=== PATIENT | male | born 1990 | race Caucasian/White ===

== ENCOUNTER 2022-01-08 16:04 | Outpatient (CLI) | payer OTHER, BC, SELFPAY ==
--- NOTE | 2022-01-08 16:35 | MRI_ITS ---
EXAM: MR RIGHT UPPER EXTREMITY WITHOUT INTRAVENOUS CONTRAST, WRIST CLINICAL INDICATION: RIGHT wrist pain LIFTING SOMETHING AT WORK 12/17/21 AND FELT WRIST POP. PAIN IS ALONG ULNAR SIDE OF WRIST AND ANTERIOR MID WRIST SINCE INJURY. THROBBING PAIN WHEN BENDS WRIST. TECHNIQUE: Multiplanar and multisequence MR images of the right wrist without intravenous contrast. This report was created using 140Fire report generation technology. COMPARISON: None. FINDINGS: LIGAMENTS: SCAPHOLUNATE: Unremarkable. Intact. LUNOTRIQUETRAL: Unremarkable. Intact. TENDONS: FLEXOR COMPARTMENTS: Unremarkable. Intact. No tenosynovitis. EXTENSOR COMPARTMENTS: Unremarkable. Intact. No tenosynovitis. NERVES: MEDIAN: Unremarkable. Median nerve is normal in size and signal intensity. ULNAR: Unremarkable. Ulnar nerve is normal in size and signal intensity. MUSCLES: Unremarkable. FLUID: Unremarkable. No joint effusion. CARTILAGE: Unremarkable. The articular cartilage is preserved. TRIANGULAR FIBROCARTILAGE COMPLEX: Unremarkable. Intact without communicating defect. BONES/JOINTS: In the volar aspect of the wrist, there is a multicystic lesion extending from the distal radius having the appearance of a ganglion. There is a narrow neck that extends towards the joint. The ganglion measures 17 x 24mm. There is a bone bruise of the distal ulna and triquetrum. No fracture. No abnormal bone marrow signal. No joint effusion or synovitis. OTHER SOFT TISSUES: Unremarkable. No ganglion. MRI/Upper Ext Joint Only(Routine) IMPRESSION: 1. In the volar aspect of the wrist, there is a multicystic lesion extending from the distal radius having the appearance of a ganglion. There is a narrow neck that extends towards the joint. The ganglion measures 17 x 24mm. 2. There is a bone bruise of the distal ulna and triquetrum. Electronically Signed: Juan Luis Khanna MD at 20:49 EST ,
== END 2022-01-08 23:59 | disposition home or self-care (01) ==
PROVIDERS: Visit Provider Emergency Medicine
DX: S63.501A Unspecified sprain of right wrist, initial encounter (principal)
CPT/HCPCS: 73221

== ENCOUNTER 2025-08-25 09:10 | Emergency (ER) | payer BC, SELFPAY ==
[2025-08-25 09:15] VITALS: BP 152/95; PULSE 135; RESP 16; TEMP 36.6; O2SAT 99; BMI 28.5
--- NOTE | 2025-08-25 09:26 | EKG12_ITS ---
Test Reason : SEIZURE Blood Pressure : */* mmHG Vent. Rate : 115 BPM Atrial Rate : 115 BPM P-R Int : 162 ms QRS Dur : 112 ms QT Int : 352 ms P-R-T Axes : 65 56 48 degrees QTcB Int : 486 ms Sinus tachycardia QTcB >= 480 msec Abnormal ECG Confirmed by ACE WARD ([id number]), scientific editor KONSTANTIN NOEL ([id number]) on 08/29/2025 6:35:27 AM Referred By: Confirmed By: ACE WARD
[2025-08-25 09:44] LABS: Hematocrit 47.4 % (40-54); Hemoglobin 15.9 g/dL (13.0-16.5); Immature Granulocytes Count 0.160 X10^3/uL (0.0-0.0); Mean Corp Hgb Conc 33.5 g/dL (32-36); Mean Corpuscular Volume 90.8 fL (80-94); Mean Platelet Vol. 10.9 fl (6.2-12.0); NRBC Flagged by Analyzer 0 % (0-5); Platelet Count 363 K/mm3 (150-450); RBC Distribution Width CV 12.6 % (11.6-14.6); RBC Distribution Width SD 41.8 fl (35.1-43.9); Red Blood Count 5.22 M/mm3 (4.6-6.2); White Blood Count 11.6 K/mm3 (4.4-11.0)
--- NOTE | 2025-08-25 09:58 | EX.ED.DYSGE1 ---
HPI History of Present Illness Chief Complaint: Seizure Informant: patient and EMS Narrative Narrative: Patient is a 35-year-old male with history of anxiety as well as bipolar disorder presenting for an episode of witnessed seizure-like activity. 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 He was in a machine area when the next he knows he woke up on the ground 6 people around him. Per report he went down and had witnessed seizure-like activity and hit his back on one of the machines. EMS reported that he was slightly postictal on scene but he does not recall being confused. He does not recall feeling anything before he woke up on the ground. He states he was previously in his normal state of health. Denies any new caffeine intake, medication changes, supplements. States he very rarely drinks alcohol. Denies any history of any seizure-like activity or syncope. Denies any chest pain. Is complaining of some mild pain of his right thoracic back where he thinks he hit something. Is not on any blood thinners. States he currently feels anxious and mildly shaky. Denies any pain in his tongue/laceration, bleeding from his mouth or urinary incontinence. No other complaints or concerns reported at this time. Per EMS report his seizure activity lasted about 5 minutes however he came to in the middle. Blood sugar was 136 per EMS. Prior similar symptoms: No Recent Illness/Hospitalization: No [facility] Medical History ADHD Anxiety Home Medications ?Medication ?Instructions ?Recorded ?Last Taken ?Type fluoxetine 10 mg tablet 10 mg PO DAILY 08/25/25 Unknown History hydrocodone-acetaminophen 5-325mg 1 tab PO Q8H PRN pain 3 days #10 08/25/25 Unknown Rx 5mg-325mg tabs Allergy/AdvReac Type Severity Reaction Status Date / Time No Known Allergies Allergy Verified 08/25/25 09:20 Social History Smoking Status: Current every day smoker tobacco type: smokeless tobacco ROS ROS ED Constitutional Constitutional ED: Denies chills or fever(s) Eyes Eyes: Denies change in vision Cardiovascular Cardiovascular: Denies chest pain Respiratory/Chest Respiratory/Chest: Denies cough or dyspnea Gastrointestinal Gastrointestinal: Denies abdominal pain, nausea or vomiting Musculoskeletal Musculoskeletal: Reports back pain Integumentary Denies Abrasions or rash Neurologic Neurologic: Reports other Details: Reported seizure activity prior to arrival. ; Denies headache(s), paresthesias or weakness Psychiatric Psychiatric: Reports anxiety; Denies depression Hematologic/Lymphatic Hematologic/Lymphatic: Denies easy bleeding or easy bruising EXAM Physical Exam Const Vital Signs: 08/25/25 09:15 08/25/25 12:00 08/25/25 14:13 Temperature 98 F Temperature Source Oral Pulse Rate 135 H 90 90 Respiratory Rate 16 15 Blood Pressure 152/95 H 148/97 H 135/89 H Blood Pressure Mean 114 114 104 Pulse Ox 99 97 98 Oxygen Delivery Method Room Air Room Air Room Air 08/25/25 14:28 Temperature 97 F L Temperature Source Pulse Rate 90 Respiratory Rate 15 Blood Pressure 135/89 H Blood Pressure Mean 104 Pulse Ox 98 Oxygen Delivery Method Positive well nourished and well developed General Appearance ED: well developed and NAD HEENT Reports TM's clear and moist mucous membranes HEENT Narrative: No tongue lesions appreciated. No signs of facial trauma. No signs of basilar skull fracture. Tympanic Membrane ED: Yes TM's clear Neck supple and no JVD General: Negative for tenderness Chest Wall inspection of chest normal and palpation of chest normal Resp normal respiratory effort and clear to auscultation bilaterally Cardio regular rhythm and no murmurs Rate: tachycardic GI normal to inspection, nondistended, normoactive bowel sounds and non-tender Back/Spine Back/Spine Narrative: Mild tenderness palpation of the right thoracic back just lateral to the inferior scapula. No overlying contusion or skin changes. Cervical Spine: cervical spine tenderness Thoracic Spine / Upper Back: Negative for thoracic spinal tenderness Lumbar Spine / Lower Back: Negative for lumbar spinal tenderness Extremity normal to inspection General Extremety ED: Negative for edema or tenderness General Extremity: Negative for edema Neuro oriented x3 Psych mental status grossly normal Mood & Affect: anxious Skin no rashes or lesions noted and no wounds MDM MDM MDM Narrative Medical decision making narrative: Patient evaluated for concern of seizure activity which is new onset. Upon arrival patient is mildly postictal but conversing appropriately. No tongue laceration. No signs of any urinary incontinence. Differential includes not limited to new onset seizure activity, electrolyte derangement, intracranial hemorrhage, space-occupying lesion, substance abuse and alcohol detox. Given that he does not report any alcohol use low alcohol detox. He denies any substance abuse and has not had any new medications or supplements. While in the ER patient clinically improved. Heart rate improved as well as blood pressure. He admits that he does not remember my initial interaction with him but I suspect is because he was postictal. CT of the brain does not show any acute process. Chest x-ray is obtained as he is complaining of pain in his right thoracic back likely from when he fell. There is no associated pneumothorax or obvious rib fracture. He does have increased pain there is given a Lidoderm patch, Toradol and Michael. I did discuss obtaining further imaging for evaluation of this however he is worried about the cost and would like to be treated clinically as if he does have a small rib fracture versus obtaining definitive imaging. I think this is reasonable especially as I have a low suspicion for any acute pneumothorax, hemothorax more severe complication. Workup largely normal. He has a mild leukocytosis of 11.6 however suspect this is reactive. Hemoglobin and platelets are normal. BMP is consistent with seizure activity with an elevated anion gap, bicarb of 15.2 however he otherwise has normal electrolytes. Glucose mildly elevated 136 which is nonspecific as this is not a fasting glucose. Lactate is elevated at 3.3. He is given IV fluids in the emergency room. Liver panel is normal. Urine tox is negative. EKG initially shows sinus tachycardia with no other arrhythmia or conduction delays concerning for cardiogenic cause of his seizure activity. CT of the brain does not show any acute process. Chest x-ray reviewed by myself as radiology does not show any acute process. Case is discussed with neurology on-call at [facility], Dr. Priest. He does not recommend any seizure medications and does not think his current medications (fluoxetine and olanzapine) would precipitate a seizure. He is agreeable with outpatient follow-up, seizure precautions no driving, outpatient EEG and follow-up with outpatient neurology. I did page his PCP to try to arrange for close outpatient follow-up. Patient be given outpatient referral for neurolgy. Was given Toradol, Michael and Lidoderm patch for his pain. Will be discharged home with return precautions. Patient verbalized agreement understand with this plan. [facility] was able to contact his PCP office and get him an appointment with his PCP this coming Friday. Patient is informed of this. Patient is given incentive spirometer for presumed rib contusion versus fracture as well as emergency room. Lab Data Attestation: I reviewed the patient's lab results. Labs: Laboratory Results - last 24 hr 08/25/25 08/25/25 08/25/25 08:55 09:45 12:52 WBC 11.6 H RBC 5.22 Hgb 15.9 Hct 47.4 MCV 90.8 MCH 30.5 MCHC 33.5 RDW Std Deviation 41.8 RDW Coeff of Alex 12.6 Plt Count 363 MPV 10.9 Immature Gran % (Auto) 1.400 H Neut % (Auto) 43.0 L Lymph % (Auto) 39.9 Centre % (Auto) 10.6 H Eos % (Auto) 4.1 Baso % (Auto) 1.0 Absolute Neuts (auto) 5.0 Absolute Lymphs (auto) 4.61 H Nucleated RBC % 0 Sodium 142 Potassium 3.2 L Chloride 100 Carbon Dioxide 15.2 L Anion Gap 27 H BUN 14 Creatinine 0.97 Estim Creat Clear Calc 109.30 Est GFR (MDRD) Non-Af 105 BUN/Creatinine Ratio 14.5 Glucose 136 H Lactic Acid 3.3 H* Calcium 9.5 Magnesium 2.1 Total Bilirubin 0.28 AST 32 ALT 42 Alkaline Phosphatase 81 Total Protein 7.6 Albumin 4.7 Globulin 2.8 Albumin/Globulin Ratio 1.7 Urine Opiates Screen NEGATIVE U Buprenorphine Qual NEGATIVE Ur Oxycodone Screen NEGATIVE Urine Methadone Screen NEGATIVE Urine Fentanyl Screen NEGATIVE Ur Barbiturates Screen NEGATIVE Ur Phencyclidine Scrn NEGATIVE Ur Amphetamines Screen NEGATIVE U Benzodiazepines Scrn NEGATIVE Urine Cocaine Screen NEGATIVE U Cannabinoids Screen NEGATIVE 08/25/25 14:00 WBC RBC Hgb Hct MCV MCH MCHC RDW Std Deviation RDW Coeff of Alex Plt Count MPV Immature Gran % (Auto) Neut % (Auto) Lymph % (Auto) Centre % (Auto) Eos % (Auto) Baso % (Auto) Absolute Neuts (auto) Absolute Lymphs (auto) Nucleated RBC % Sodium Potassium Chloride Carbon Dioxide Anion Gap BUN Creatinine Estim Creat Clear Calc Est GFR (MDRD) Non-Af BUN/Creatinine Ratio Glucose Lactic Acid 1.2 Calcium Magnesium Total Bilirubin AST ALT Alkaline Phosphatase Total Protein Albumin Globulin Albumin/Globulin Ratio Urine Opiates Screen U Buprenorphine Qual Ur Oxycodone Screen Urine Methadone Screen Urine Fentanyl Screen Ur Barbiturates Screen Ur Phencyclidine Scrn Ur Amphetamines Screen U Benzodiazepines Scrn Urine Cocaine Screen U Cannabinoids Screen Radiography Diagnostic Testing: Clinical Impression(s) from Imaging Studies Chest X-Ray 08/25/25 10:00 IMPRESSION: Lungs appear clear throughout. No pleural effusion or pneumothorax is noted. The cardiomediastinal silhouette is within the normal range. No acute osseous process is seen. Reading Location: [address] Brain [address] 08/25/25 10:04 IMPRESSION: NORMAL NONCONTRAST HEAD CT. Reading Location: [facility] Rhythm Strip Rhythm Strip: Sinus Tach Rate: 115 Ectopy: None EKG Initial EKG: Attestation: I personally reviewed and interpreted this EKG as follows: Interpretation: Sinus Tachycardia Comments: Sinus tachycardia rate 114 bpm Normal axis Normal intervals Normal ST segments Management Discussion w/another healthcare provider: [employer] (Neurologist) Discharge Plan Triage Chief Complaint: Seizure ED Provider: Chasidy Ace Dx/Rx/DC Orders Clinical Impression: Seizure-like activity, Contusion of rib on right side Instructions: ED Seizure New [facility] Adult, ED Rib Contusion or Minor Fracture Prescriptions: New hydrocodone-acetaminophen 5-325 mg tablet 1 tab PO Q8H PRN (Reason: pain) 3 Days Qty: 10 0RF No Action fluoxetine 10 mg tablet 10 mg PO DAILY Primary Care Provider: STEVE HYLTON Referrals: STEVE HYLTON [Other] Lito Feliciano MD [Non-Staff -Ordering Privileges, Neurology] Activity Restrictions/Additional Instructions: It appears that you had a seizure today. The cause is unclear however at this time you can be discharged home. No medication changes and the neurologist recommend you continue taking your normal medications (fluoxetine, olanzapine and your ADD medication). You will need an outpatient EEG and follow-up with neurology after this EEG. You been given information for the neurologist. You have an appointment for Dr. Hylton at 9 AM on Friday. They can order the EEG. No driving, operating heavy machinery or baths/swimming until cleared by the neurologist because of risk of having another seizure. Please use incentive spirometer as we discussed, take [id number] ibuprofen for your pain and you may also take the Michael which is prescribed for breakthrough pain. I suspect you either have a deep bruise/contusion to your rib/back or possibly a small rib fracture. Print Language: Maltese Disposition Disposition: Home, Self Care Discharge Date/Time: 08/25/25 14:40
--- NOTE | 2025-08-25 10:00 | RAD_ITS ---
PROCEDURE: CHEST PA AND LATERAL 08/25/2025 REASON FOR EXAM: SEIZURE LIKE ACTIVITY TECHNIQUE: Procedure Code: RADCXR Modality: DX Procedure: CHEST PA AND LATERAL COMPARISON: None. RAD/Chest PA and Lateral IMPRESSION: Lungs appear clear throughout. No pleural effusion or pneumothorax is noted. The cardiomediastinal silhouette is within the normal range. No acute osseous process is seen. Reading Location: [id number]
[2025-08-25 10:04] LABS: AST(SGOT) 32 U/L (<=37); Alanine Aminotransfer ALT/SGPT 42 U/L (<=46); Albumin, Serum 4.7 g/dL (3.5-5.0); Alkaline Phosphatase 81 U/L (40-129); Anion Gap 27 (5-15); BUN 14 mg/dL (4-19); BUN/Creat Ratio 14.5 RATIO (10-20); Calcium,Total 9.5 mg/dL (7.6-11.0); Carbon Dioxide 15.2 mmol/L (21.0-32.0); Chloride 100 mmol/L (98-108); Estimated Creatinine Clearance 109.30 ml/min (50-250); Globulin 2.8 g/dL (2.2-4.2); Glucose 136 mg/dL (70-99); Magnesium 2.1 mg/dL (1.5-2.2); Potassium 3.2 mmol/L (3.3-5.1)
--- NOTE | 2025-08-25 10:04 | CT_ITS ---
PROCEDURE: BRAIN/HEAD WITHOUT CONTRAST 08/25/2025 REASON FOR EXAM: SEIZURE LIKE ACTIVITY, NEW ONSET TECHNIQUE: Procedure Code: CTBR Modality: CT Procedure: BRAIN/HEAD WITHOUT CONTRAST Coronal and Sagittal reconstruction series were provided. One or more dose reduction techniques were used (e.g., Automated exposure control, adjustment of the mA and/or kV according to patient size, use of iterative reconstruction technique. RADIATION DOSE SUMMARY: CTDlvol: 47.06 mGy DLP: 925.62 mGycm COMPARISON: None FINDINGS: Brain: Normal CSF Spaces: Normal Sinuses/Mastoids: Clear at visualized levels Bones: Unremarkable CT/Brain/Head without Contrast IMPRESSION: NORMAL NONCONTRAST HEAD CT. Reading Location: [place] [id number]
[2025-08-25] MEDS: 0.9% Normal Saline (1000mL) 1,000 ML 1000 ML IV (10:10)
--- OUTSIDE RECORDS SUMMARY | 2025-08-25 10:29 | XMS RPT_ITS | CCD ---
Author Organization [facility] Care Team Providers Care Healthcare Liaison Name Role Phone Ting Freeman DO Steve Primary Care Provider TING FREEMAN Referring Unavailable PETE, TING Attending Unavailable PETE, TING Primary Care Unavailable PETE, TING Referring Unavailable PETE, TING Attending Unavailable PETE, TING Primary Care Unavailable PETE, TING Primary Care Unavailable PETE, TING Referring Unavailable PETE, TING Attending Unavailable Problems Active Problems Problem Classification Problem Date Documented Da te Episodic/Chronic Cardiac dysrhythmias (8 sources) Palpitations; Translations: [Palpitations] Onset: 11-25-2024 11-25-2024 Episodic Past or Other Problems Problem Classification Problem Date Documented Da te Episodic/Chronic Other non-traumatic joint disorders (4 sources) Knee joint finding; Translations: [Other specified joint disorders, right knee] Onset: 2024 2024 Episodic Other non-traumatic joint disorders (1 source) Other specified joint disorders, right knee; Translations: [Other specified joint disorders, right knee] Onset: 2024 Episodic Other skin disorders (4 sources) Disorder of right lower extremity; Translations: [Localized swelling, mass and lump, right lower limb] Onset: 05-17-2024 05-17-2024 Episodic Other skin disorders (1 source) Localized swelling, mass and lump, right lower limb; Translations: [Localized swelling, mass and lump, right lower limb] Onset: 05-17-2024 Episodic Results Test Name Value Interpretation Reference Range Facil ity Cardiac event monitor (14 da ys)on 12-10-2024 The patient wore continuous telemetry for 11 days 13 hours and 1 minute. The rhythm was sinus averaging 80 bpm with a minimum of 51 and a maximum of 154. There were no symptomatic transmissions. There were 37 PVCs. There were 113 PACs for burden of less than 1%. Summary: Normal continuous telemetry demonstrates sinus rhythm averaging 80 bpm with rare atrial and ventricular ectopy. CV EPIPHANY Cardiac event monitor (14 da ys)Ordered By: Jose Luis Gama on 12-10-2024 [facility] [employer] Work Phone: US EXTREMITY NON VASCULAR LI Jorge 06-05-2024 US EXTREMITY NON VASCULAR LIMITED Patient Name: CLEO SANCHEZ : 1990 Exam Date/Time: 2024 18:55 Procedure: US EXTREMITY NON VASCULAR LIMITED Ordering Provider: FREEMAN JOHN Reason For Exam: m25.861 Examination: Ultrasound extremity nonvascular limited Clinical Indication: m25.861, lump Comparison: None Findings: Linear and color Doppler sonographic images obtained through the right lower extremity, anterior knee. Static images presented for radiologic interpretation. Area of interest corresponds to normal-appearing slightly lobular subcutaneous fat in the region of interest. No sonographic images of suspicious soft tissue mass, fluid collection or inflammation. No discrete encapsulated lipoma. No evidence of lymphadenopathy. IMPRESSION: Impression: No sonographic evidence of mass, fluid collection or inflammation. Recommend further evaluation with MRI with and without gadolinium contrast for any interval enlargement or worsening symptomatology. Report Dictated on Electronically Signed By: Vikash Edwards MD Electronically Signed Date/Time: 06/05/2024 8:56 AM EDT Normal [facility] Upper Ext Joint Only(Routine )on 01-08-2022 Upper Ext Joint Only(Routine) [facility] Imaging Services [address] [place] [id number] Upper Ext Joint Only(Routine) MR#: [id number] Acct: [id number] Name: CLEO SANCHEZ Rep #: [id number] : 1990 M 31 From: Juan Luis Jaimes PCP: STEVE FREEMAN Status: REG CLI Study: Upper Ext Joint Only(Routine) Date of Exam: 0 01/08/22 Exam# [id number] Ordering Dr: Isael Romero MD EXAM: MR RIGHT UPPER EXTREMITY WITHOUT INTRAVENOUS CONTRAST, WRIST CLINICAL INDICATION: RIGHT wrist pain LIFTING SOMETHING AT WORK 12/17/21 AND FELT WRIST POP. PAIN IS ALONG ULNAR SIDE OF WRIST AND ANTERIOR MID WRIST SINCE INJURY. THROBBING PAIN WHEN BENDS WRIST. TECHNIQUE: Multiplanar and multisequence MR images of the right wrist without intravenous contrast. This report was created using [employer] report generation technology. COMPARISON: None. FINDINGS: LIGAMENTS: SCAPHOLUNATE: Unremarkable. Intact. LUNOTRIQUETRAL: Unremarkable. Intact. TENDONS: FLEXOR COMPARTMENTS: Unremarkable. Intact. No tenosynovitis. EXTENSOR COMPARTMENTS: Unremarkable. Intact. No tenosynovitis. NERVES: MEDIAN: Unremarkable. Median nerve is normal in size and signal intensity. ULNAR: Unremarkable. Ulnar nerve is normal in size and signal intensity. MUSCLES: Unremarkable. FLUID: Unremarkable. No joint effusion. CARTILAGE: Unremarkable. The articular cartilage is preserved. TRIANGULAR FIBROCARTILAGE COMPLEX: Unremarkable. Intact without communicating defect. BONES/JOINTS: In the volar aspect of the wrist, there is a multicystic lesion extending from the distal radius having the appearance of a ganglion. There is a narrow neck that extends towards the joint. The ganglion measures 17 x 24mm. There is a bone bruise of the distal ulna and triquetrum. No fracture. No abnormal bone marrow signal. No joint effusion or synovitis. OTHER SOFT TISSUES: Unremarkable. No ganglion. MRI/Upper Ext Joint Only(Routine) IMPRESSION: 1. In the volar aspect of the wrist, there is a multicystic lesion extending from the distal radius having the appearance of a ganglion. There is a narrow neck that extends towards the joint. The ganglion measures 17 x 24mm. 2. There is a bone bruise of the distal ulna and triquetrum. Electronically Signed: Juan Luis Khanna MD at 20:49 EST Reading Location ID and State: [facility] / [place] , Service support , CC: STEVE FREEMAN; Dr. Isael Romero MD Die Forger: Signed [facility] HEALTH 08-15-2021 ALLIED HEALTH HNO ID: [id number] Author: RT Hector(R) Service: Radiology Author Type: Technologist Type: Allied Health Filed: 08/15/2021 1:12 PM Note Text: Radiology Service Progress Note PATIENT NAME: Cleo Sanchez DATE OF SERVICE: August 15, 2021 TIME: 1:11 PM PATIENT IDENTITY VERIFICATION COMPLETED USING TWO (2) IDENTIFIERS: Name and Date of confirmed by patient verbally. FALL SCREENING: Has the patient had 2 falls in the last year or 1 fall with injury or currently using an Ambulatory Assistive Device (Walker, Cane, Wheelchair, Crutches, etc.)? Emergency Room Patient: Screened in ED PATIENT GENDER DATA: Male PATIENT RELEVANT IMPLANT DATA REVIEWED: Not Applicable RADIOLOGY DEPARTMENT: General X-ray: Exam(s) Completed: Chest X-Ray PERIPHERAL IV DATA: Not applicable SIGNED BY: Pretty Walker, RT(R) August 15, 2021 1:11 PM [facility] ANES PRE-OPon 08-15-2021 ANES PRE-OP HNO ID: [id number] Author: Mushtaq Elena MD Service: Anesthesiology Author Type: Physician Type: Anesthesia Preprocedure Evaluation Filed: 08/15/2021 5:08 PM Note Text: ANESTHESIOLOGY DAY OF SURGERY NOTE : 1990 Procedure(s) (LRB): EGD WITH REMOVAL FOREIGN BODY (N/A) Surgeon(s): Casper Ramírez MD Estimated body mass index is 24.39 kg/m? as calculated from the following: Height as of this encounter: 177.8 cm (5' 10). Weight as of this encounter: 77.1 kg (170 lb). Most recent hematocrit and potassium results: Hematocrit 47.6 08/15/2021 Potassium 4.0 08/15/2021 Relevant Problems No relevant active problems adhd Globus sensation I - PHYSICAL EVALUATION AIRWAY Patient intubated: No. Mallampati: I. TM distance: >3 FB. Neck ROM: full ROM without neurological symptoms. Mouth opening: adequate. DENTAL Dental findings: teeth intact. Additional exam findings: no II - ANESTHESIA PLAN ASA Score: 2 Anesthetic Plan: MAC Anesthetic plan additional comments: MAC vs. GA with ETT. The patient is not a current smoker. NPO Status: adequate Monitoring plan: standard ASA. Postoperative analgesic plan: parenteral or oral opioids. Anesthetic Risks, Benefits, Alternatives, Personnel Discussed. Consent obtained from: patient.Patient / Surrogate agrees to blood products: Yes Significant changes in the patient condition since the History and Physical, not otherwise documented in primary service progress note: no. Potential Anesthesia issues that may suggest increased risk of complications or contraindication to planned procedure: none. Vitals Value Taken Time BP 113/64 08/15/211640 Pulse 74 08/15/211640 Resp 16 08/15/211640 Temp 36.7 ?C (98.1 ?F) 08/15/211640 SpO2 100 % 08/15/211640 Facility-Administered Medications as of 08/15/2021 Medication Dose Route Frequency - [COMPLETED] NaCl 0.9% 1,000 mL iv bolus 1,000 mL INTRAVENOUS ONCE - [COMPLETED] ondansetron (PF) 4 mg injection (ZOFRAN) 4 mg INTRAVENOUS ONCE - [COMPLETED] glucagon 1 mg injection 1 mg INTRAVENOUS ONCE - [COMPLETED] nitroglycerin sublingual 0.4 mg tab(s) (NITROQUICK) 0.4 mg SUBLINGUAL ONCE - [COMPLETED] keTORolac 15 mg injection (TORADOL) 15 mg INTRAVENOUS ONCE Outpatient Medications as of 08/15/2021 Medication Sig - amphetamine-dextroamph etamine XR (ADDERALL XR) 20 mg 24 hr capsule Take 20 mg by mouth once daily. - fluticasone (FLONASE ALLERGY RELIEF) 50 mcg/actuation nasal spray Use 1 [place] in each nostril twice daily. - albuterol HFA (PROAIR HFA) 90 mcg/actuation inhaler Inhale 2 Puffs as instructed every 4 hours as needed for Wheezing/Shortness of Breath (tightness in chest, cough). - predniSONE (DELTASONE) 20 mg tablet Take 1 tablet by mouth once daily. - Benzonatate 200 mg capsule Take 1 capsule by mouth every 8 hours as needed for Cough. - cyclobenzaprine (FLEXERIL) 5 mg tablet Take 1 tablet by mouth three times daily as needed for Muscle Spasm. I have interviewed and examined the patient. I have reviewed the medical record and/or the pre-anesthesia evaluation, pertinent labs, and test results. This contains updated information obtained within 48 hours of Surgery/Procedure. SIGNATURE: Mushtaq Elena MD PATIENT NAME: Cleo Sanchez DATE: August 15, 2021 TIME: 5:06 PM CSN: [id number] Normal [facility] CBC W Auto Differential pane l (Bld)on 08-15-2021 Basophils (Bld) [#/Vol] 0.03 10*3/uL Normal <0.11 [facility] Comment on above: Order Comment: Speci men Type: BLOOD SPECIMEN Performed By: #### 5 7021-8 #### [facility] CLIA [id number] [address] Basophils/100 WBC (Bld) 0.3 % Normal [facility] Comment on above: Order Comment: Speci men Type: BLOOD SPECIMEN Performed By: #### 5 7021-8 #### [facility] CLIA [id number] [address] Differential cell count method Nom (Bld) Auto Normal [facility] Comment on above: Order Comment: Speci men Type: BLOOD SPECIMEN Performed By: #### 5 7021-8 #### [facility] CLIA [id number] [address] Eosinophils (Bld) [#/Vol] 0.10 10*3/uL Normal <0.46 [facility] Comment on above: Order Comment: Speci men Type: BLOOD SPECIMEN Performed By: #### 5 7021-8 #### [facility] CLIA [id number] [address] Eosinophils/100 WBC (Bld) 1.0 % Normal [facility] Comment on above: Order Comment: Speci men Type: BLOOD SPECIMEN Performed By: #### 5 7021-8 #### [facility] CLIA [id number] [address] Erythrocyte distribution width (RBC) [Ratio] 12.9 % Normal 11.5-15.0 [facility] Comment on above: Order Comment: Speci men Type: BLOOD SPECIMEN Performed By: #### 5 7021-8 #### [facility] CLIA [id number] [address] [place] Hematocrit (Bld) [Volume fraction] 47.6 % Normal 39.0-51.0 [facility] Comment on above: Order Comment: Speci men Type: BLOOD SPECIMEN Performed By: #### 5 7021-8 #### [facility] CLIA [id number] [address] Hemoglobin (Bld) [Mass/Vol] 16.1 g/dL Normal 13.0-17.0 [facility] Comment on above: Order Comment: Speci men Type: BLOOD SPECIMEN Performed By: #### 5 7021-8 #### [facility] CLIA [id number] [address] IMMATURE GRAN % 0.4 % Normal [facility] Comment on above: Order Comment: Speci men Type: BLOOD SPECIMEN Performed By: #### 5 7021-8 #### [facility] CLIA [id number] [address] IMMATURE GRAN ABS 0.04 k/uL Normal <0.10 [facility] Comment on above: Order Comment: Speci men Type: BLOOD SPECIMEN Performed By: #### 5 7021-8 #### [facility] CLIA [id number] [address] Lymphocytes (Bld) [#/Vol] 0.88 10*3/uL Low 1.00-4.00 [facility] Comment on above: Order Comment: Speci men Type: BLOOD SPECIMEN Performed By: #### 5 7021-8 #### [facility] CLIA [id number] [address] Lymphocytes/100 WBC (Bld) 9.1 % Normal [facility] Comment on above: Order Comment: Speci men Type: BLOOD SPECIMEN Performed By: #### 5 7021-8 #### [facility] CLIA [id number] [address] MCH (RBC) [Entitic mass] 30.4 pg Normal 26.0-34.0 [facility] Comment on above: Order Comment: Speci men Type: BLOOD SPECIMEN Performed By: #### 5 7021-8 #### [facility] CLIA [id number] [address] MCHC (RBC) [Mass/Vol] 33.8 g/dL Normal 30.5-36.0 [facility] Comment on above: Order Comment: Speci men Type: BLOOD SPECIMEN Performed By: #### 5 7021-8 #### [facility] CLIA [id number] [address] MCV (RBC) [Entitic vol] 90.0 fL Normal 80.0-100.0 [facility] Comment on above: Order Comment: Speci men Type: BLOOD SPECIMEN Performed By: #### 5 7021-8 #### [facility] CLIA [id number] [address] Monocytes (Bld) [#/Vol] 0.73 10*3/uL Normal <0.87 [facility] Comment on above: Order Comment: Speci men Type: BLOOD SPECIMEN Performed By: #### 5 7021-8 #### [facility] CLIA [id number] [address] Monocytes/100 WBC (Bld) 7.5 % Normal [facility] Comment on above: Order Comment: Speci men Type: BLOOD SPECIMEN Performed By: #### 5 7021-8 #### [facility] CLIA [id number] [address] Neutrophils (Bld) [#/Vol] 7.93 10*3/uL High 1.45-7.50 [facility] Comment on above: Order Comment: Speci men Type: BLOOD SPECIMEN Performed By: #### 5 7021-8 #### [facility] CLIA [id number] [address] Neutrophils/100 WBC (Bld) 81.7 % Normal [facility] Comment on above: Order Comment: Speci men Type: BLOOD SPECIMEN Performed By: #### 5 7021-8 #### [facility] CLIA [id number] [address] Nucleated RBC (Bld) [#/Vol] 10*3/uL Normal <0.01 [facility] Comment on above: Order Comment: Speci men Type: BLOOD SPECIMEN Performed By: #### 5 7021-8 #### [facility] CLIA [id number] [address] Nucleated RBC/100 WBC (Bld) [Ratio] 0.0 /100 WBC Normal 0.0 [facility] Comment on above: Order Comment: Speci men Type: BLOOD SPECIMEN Performed By: #### 5 7021-8 #### [facility] CLIA [id number] [address] Platelet mean volume (Bld) [Entitic vol] 10.3 fL Normal 9.0-12.7 [facility] Comment on above: Order Comment: Speci men Type: BLOOD SPECIMEN Performed By: #### 5 7021-8 #### [facility] CLIA [id number] [address] Platelets (Bld) [#/Vol] 243 10*3/uL Normal 150-400 [facility] Comment on above: Order Comment: Speci men Type: BLOOD SPECIMEN Performed By: #### 5 7021-8 #### [facility] CLIA [id number] [address] RBC (Bld) [#/Vol] 5.29 10*6/uL Normal 4.20-6.00 [facility] Comment on above: Order Comment: Speci men Type: BLOOD SPECIMEN Performed By: #### 5 7021-8 #### [facility] CLIA [id number] [address] WBC (Bld) [#/Vol] 9.71 10*3/uL Normal 3.70-11.00 [facility] Comment on above: Order Comment: Speci men Type: BLOOD SPECIMEN Performed By: #### 5 7021-8 #### [facility] CLIA [id number] 1 [place] [address] [place] KEVOVlevi 08-15-2021 CNOV Office Visit (WALKWA ) CLEO SANCHEZ ([id number]) 1990 M Date Time Provider Department 08/15/21 12:00 PM BISMARK LOPEZ During your visit today, we recorded the following information about you: Temperature Pulse Respiration Blood pressure 97.8 degrees 92/minute 12/minute 140/84 Bismark Lopez PA-C 08/15/2021 12:20 PM Signed Triage note: 31 yo male here for acute onset worsening epigastric pain x 2 days. Started on Friday (08/13/21). He reports a sharp pain in the lower sternal/epigastric area. Worsened dramatically today () pain. Sharp. He notes a feeling of pressure and regurgitation like a bubble in his throat. He denies acid reflux sensations. Pain is sharp. It does not radiate to the back or elsewhere. He leans forward with walking and sitting for some relief. No fever, chills, sweats, n/v/d/c, or other sick symptoms. No h/o gallbladder issues, hernias, ulcers, GERD, or other GI disorders. BP 140/84 Pulse 92 Temp 36.6 ?C (97.8 ?F) (Oral) Resp 12 SpO2 99% Brief exam: General- appears uncomfortable. Leans forward with sitting and standing. Abdomen: BS x 4 quads, soft, nondistended, Significant epigastric tenderness to deep palpation, Hubbard's sign- negative, McBurney's point- negative, Psoas and Obturator signs- negative, no masses or organomegaly, no rebound tenderness or guarding. No [place] or Gibbs Abarca's sign. No CVA tenderness to percussion. ASSESSMENT/PLAN: 1. Epigastric pain - ICD9: 789.06, ICD10: R10.13 Sharp, pain Worsening Had to leave work today due to degree of pain - CONSULT TO EMERGENCY MEDICINE - Cannot fully evaluate in Exp Care No charge TIMI Calvo PA-C 08/15/2021 12:10 PM Signed ASSESSMENT/PLAN: 1. Epigastric pain - - CONSULT TO EMERGENCY MEDICINE - Cannot fully evaluate in Exp Care No charge Bismark Lopez PA-C Referring Provider: SELF [200] Allergies As of Date: 08/15/2021 (No Known Allergies) Date Reviewed: 06/13/2021 Reviewed by: Jennyfer Culver Ma - Fully Assessed Reason for Visit: Chest Pain [21] Cmt: x2 days Primary Visit Diagnosis:Epigastric pain [R10.13] Order(s):CONSULT TO EMERGENCY MEDICINE [] Order #: [id number]: 1 Prescriptions as of 08/15/2021 - fluticasone (FLONASE ALLERGY RELIEF) 50 mcg/actuation nasal spray Use 1 [place] in each nostril twice daily. - albuterol HFA (PROAIR HFA) 90 mcg/actuation inhaler Inhale 2 Puffs as instructed every 4 hours as needed for Wheezing/Shortness of Breath (tightness in chest, cough). - predniSONE (DELTASONE) 20 mg tablet Take 1 tablet by mouth once daily. - Benzonatate 200 mg capsule Take 1 capsule by mouth every 8 hours as needed for Cough. - cyclobenzaprine (FLEXERIL) 5 mg tablet Take 1 tablet by mouth three times daily as needed for Muscle Spasm. Problem List As Of Date: 08/15/2021 (None) Other instructions from your clinician: ASSESSMENT/PLAN: 1. Epigastric pain - - CONSULT TO EMERGENCY MEDICINE - Cannot fully evaluate in Exp Care No charge Bismark Lopez PA-C Letter Text Encounter Status:Closed by BISMARK LOPEZ on 08/15/21 [facility] CONSULTon 08-15-2021 CONSULT HNO ID: [id number] Author: Casper Ramírez MD Service: Gastroenterology Author Type: Physician Type: Consults Filed: 08/15/2021 6:04 PM Note Text: INITIAL CONSULT GASTROENTEROLOGY SERVICE DATE: 08/15/2021 SERVICE TIME: 5:38 PM Consulting Service: GI Opinion/advice regarding: Myah gaetano SILVESTRE Subjective HPI: This is a 31 year old male who presents with hx of eating a cookie on Friday and felt it get stuck then. According to ED DrElif, he had not been able to get po down and had a water challenge that he thru up in the ED. However, upon my Hx pt says he has had pain w swallowing and has been able to keep po including solids and liquids down. No prior hx of dysphagia, reflux, GI bleeding, abd pain, wt loss. No change in b habits. History reviewed. No pertinent past medical history. History reviewed. No pertinent surgical history. History reviewed. No pertinent family history. Social History Tobacco Use - Smoking status: Former Smoker - Smokeless tobacco: Never Used Substance Use Topics - Alcohol use: Not on file - Drug use: Not on file MEDICATIONS: Prior to Admission Medications: amphetamine-dextroamph etamine XR (ADDERALL XR) 20 mg 24 hr capsule Take 20 mg by mouth once daily. fluticasone (FLONASE ALLERGY RELIEF) 50 mcg/actuation nasal spray Use 1 [place] in each nostril twice daily. albuterol HFA (PROAIR HFA) 90 mcg/actuation inhaler Inhale 2 Puffs as instructed every 4 hours as needed for Wheezing/Shortness of Breath (tightness in chest, cough). predniSONE (DELTASONE) 20 mg tablet Take 1 tablet by mouth once daily. Benzonatate 200 mg capsule Take 1 capsule by mouth every 8 hours as needed for Cough. cyclobenzaprine (FLEXERIL) 5 mg tablet Take 1 tablet by mouth three times daily as needed for Muscle Spasm. No current facility-administered medications for this encounter. ALLERGIES No Known Allergies GI SPECIFIC REVIEW OF SYSTEMS: Positive for as per TABLE [place] Negative for change in weight No alteration in bowel habits OTHER ROS: Negative for fever, night sweats, sleep problems, mood or depression. Objective PHYSICAL EXAM: BP 113/64 Pulse 74 Temp 36.7 ?C (98.1 ?F) (Temporal) Resp 16 Ht 177.8 cm (5' 10) Wt 77.1 kg (170 lb) SpO2 100% BMI 24.39 kg/m? GENERAL- AAO x 3, no distress HEENT: Moist mucus membranes, no carotid bruit LUNGS: Clear to auscultation bilaterally CARDIAC: S1, S2 heard, no murmur appreciated ABDOMEN: Soft, non-tender without guarding or rigidity, normal bowel sounds EXTREMITIES: No pedal edema DATA: Diagnostic Tests Reviewed for Today's Visit: Most recent labs Impression/Recommendat ions Active Problems: 1. Odynophagia since likely brief obstruction w cookie 2 ds ago?. No hx of obstruction by my account, doubt FB. Covid almost back. Since he may ultimately need an EGD will proceed. Further rec's pending findings. Addendum: Pt tested + for Covid, but had it about 3-4 wks ago and has been asx for > 2-3 wks. Given his stability from GI standpoint will hold off endoscopy and simply DC pt on PPI and have him f/up as outpt. Resolved Problems: * No resolved hospital problems. * SIGNATURE: Casper Ramírez MD PATIENT NAME: Cleo Sanchez DATE: August 15, 2021 TIME: 5:38 PM Normal [facility] Comprehensive metabolic 2000 panelon 08-15-2021 Albumin [Mass/Vol] 5.2 g/dL High 3.9-4.9 [facility] Comment on above: Order Comment: Speci men Type: BLOOD SPECIMEN Performed By: #### 3 040-3, 98539-7 #### [facility] CLIA [id number] [address] ALP [Catalytic activity/Vol] 75 U/L Normal 38-113 [facility] Comment on above: Order Comment: Speci men Type: BLOOD SPECIMEN Performed By: #### 3 040-, 49013-2 #### [facility] CLIA [id number] [address] OF [facility] ALT With P-5'-P [Catalytic activity/Vol] 17 U/L Normal 10-54 [facility] Comment on above: Order Comment: Speci men Type: BLOOD SPECIMEN Performed By: #### 3 040-3, 98052-7 #### [facility] CLIA [id number] [address] Anion gap [Moles/Vol] 16 mmol/L Normal 9-18 [facility] Comment on above: Order Comment: Speci men Type: BLOOD SPECIMEN Performed By: #### 3 -, #### [facility] CLIA [id number] [address] AST With P-5'-P [Catalytic activity/Vol] 17 U/L Normal 14-40 [facility] Comment on above: Order Comment: Speci men Type: BLOOD SPECIMEN Performed By: #### 3 -, #### [facility] CLIA [id number] [address] Bilirubin [Mass/Vol] 0.5 mg/dL Normal 0.2-1.3 [facility] Comment on above: Order Comment: Speci men Type: BLOOD SPECIMEN Performed By: #### 3 , #### [facility] CLIA [id number] [address] STATES [facility] Calcium [Mass/Vol] 10.1 mg/dL Normal 8.5-10.2 [facility] Comment on above: Order Comment: Speci men Type: BLOOD SPECIMEN Performed By: #### 3 , #### [facility] CLIA [id number] [address] STATES OF [facility] Chloride [Moles/Vol] 101 mmol/L Normal 97-105 [facility] Comment on above: Order Comment: Speci men Type: BLOOD SPECIMEN Performed By: #### 3 , #### [facility] CLIA [id number] [address] [place] CO2 [Moles/Vol] 25 mmol/L Normal 22-30 [facility] Comment on above: Order Comment: Speci men Type: BLOOD SPECIMEN Performed By: #### 3 , #### [facility] CLIA [id number] [address] [place] Creatinine [Mass/Vol] 0.82 mg/dL Normal 0.73-1.22 [facility] Comment on above: Order Comment: Speci men Type: BLOOD SPECIMEN Performed By: #### 3 040-3, 98732-0 #### [facility] CLIA [id number] [address] [place] GFR/1.73 sq M.predicted MDRD (S/P/Bld) [Vol rate/Area] mL/min/{1.73_m2} Normal [facility] Comment on above: Order Comment: Speci men Type: BLOOD SPECIMEN Result Comment: >60 eGFR (Estimated GFR) Units of measure: mL/min/1.73 meters squared eGFR is derived from the reexpressed MDRD Study equation using the following parameters: serum creatinine, age, gender and race. The creatinine assay has been calibrated to be traceable to IDMS. An eGFR <60 mL/min/1.73m2 for >3 months is consistent with chronic kidney disease. Refer to KDOQI guidelines for clinical interpretation. In patients with unstable renal function, e.g. those with acute kidney injury, the eGFR may not accurately reflect actual GFR. Performed By: #### 3 040-3, 81735-8 #### [facility] CLIA [id number] 1 [place] [address] [place] Glucose [Mass/Vol] 97 mg/dL Normal 74-99 [facility] Comment on above: Order Comment: Speci men Type: BLOOD SPECIMEN Result Comment: The [place] [employer] (ADA) provides guidance for cutoff values for fasting glucose and random glucose. The ADA defines fasting as no caloric intake for at least 8 hours. Fasting plasma glucose results between 100 to 125 mg/dL indicate increased risk for diabetes (prediabetes). Fasting plasma glucose results greater than or equal to 126 mg/dL meet the criteria for diagnosis of diabetes. In the absence of unequivocal hyperglycemia, results should be confirmed by repeat testing. In a patient with classic symptoms of hyperglycemia or hyperglycemic crisis, random plasma glucose results greater than or equal to 200 mg/dL meet the criteria for diagnosis of diabetes. Reference: Standards of Medical Care in Diabetes 2016, [place] [employer]. Diabetes Care. 2016.39(Suppl 1). Performed By: #### 3 040-, 29682-4 #### [facility] CLIA [id number] [address] OF [facility] Potassium [Moles/Vol] 4.0 mmol/L Normal 3.7-5.1 [facility] Comment on above: Order Comment: Speci men Type: BLOOD SPECIMEN Performed By: #### 3 040-3, 22716-1 #### [facility] CLIA [id number] [address] STATES OF [facility] Protein [Mass/Vol] 7.7 g/dL Normal 6.3-8.0 [facility] Comment on above: Order Comment: Speci men Type: BLOOD SPECIMEN Performed By: #### 3 040-3, #### [facility] CLIA [id number] [address] Sodium [Moles/Vol] 142 mmol/L Normal 136-144 [facility] Comment on above: Order Comment: Speci men Type: BLOOD SPECIMEN Performed By: #### 3 040-3, 37657-7 #### [facility] CLIA [id number] [address] STATES [facility] Urea nitrogen [Mass/Vol] 12 mg/dL Normal 9-24 [facility] Comment on above: Order Comment: Speci men Type: BLOOD SPECIMEN Performed By: #### 3 040-3, 06312-7 #### [facility] CLIA [id number] [address] ED NOTEon 08-15-2021 ED NOTE HNO ID: [id number] Author: Lisa Aponte RN Service: ? Author Type: Registered Nurse Type: ED Notes Filed: 08/15/2021 12:57 PM Note Text: information technology associate notified pt is ready for xray. Normal [facility] ED PROV NOTEon 08-15-2021 ED PROV NOTE HNO ID: [id number] Author: Eliud Beltre DO Service: Emergency Medicine Author Type: Physician Type: ED Provider Notes Filed: 08/15/2021 1:44 PM Note Text: ED Provider Note Patient Name: Cleo Sanchez SERVICE DATE: 08/15/21 History Patient presents with: Abdominal Pain: Pt states two days ago while eating, he felt like he had some food stuck in his throat, states it was a [employer] cookie. Pt made himself throw up to try to expell the stuck item. Has not had vomitting since. Pt states he tried to drink water to get it to pass and it wouldn't go down. Epigastric pain started yesterday. Treid tumwilmar, gas-x. Pt having epigastric pain, TTP, radiates to chest, worse when swallowing. Foreign Body Chief complaint is epigastric and midsternal chest pain 31-year-old healthy male ate a cookie about couple days ago and states that it feels like it is just stuck. Describes sharp stabbing to a deep ache pain midsternally, nonradiating. When he drinks he feels like it is just staying in his upper esophagus but is not throwing up. No history of stricture. No past medical history on file. No past surgical history on file. No family history on file. Social History Tobacco Use - Smoking status: Former Smoker - Smokeless tobacco: Never Used Substance and Sexual Activity - Alcohol use: Not on file - Drug use: Not on file - Sexual activity: Not on file ALLERGIES No Known Allergies Review of Systems Constitutional: Negative. HENT: Negative. Respiratory: Negative. Cardiovascular: Negative. Gastrointestinal: Positive for abdominal pain. Negative for nausea. Genitourinary: Negative. Musculoskeletal: Negative. Skin: Negative. Physical Exam Vitals [08/15/21 1244] BP Pulse Temp Temp src Resp SpO2 Weight Height 149/85 (!) 94 36.5 ?C (97.7 ?F) Oral 16 99 % -- -- Physical Exam Vitals and nursing note reviewed. Constitutional: General: He is not in acute distress. Appearance: He is well-developed and normal weight. He is not ill-appearing. Eyes: General: No scleral icterus. Extraocular Movements: Extraocular movements intact. Cardiovascular: Rate and Rhythm: Normal rate and regular rhythm. Pulmonary: Effort: Pulmonary effort is normal. Breath sounds: Normal breath sounds. Abdominal: Tenderness: There is abdominal tenderness in the epigastric area. There is no guarding or rebound. Hernia: No hernia is present. Skin: General: Skin is warm and dry. Neurological: Mental Status: He is alert. Diagnostic Testing ED Labs Ordered and Reviewed COMP METABOLIC PANEL - Abnormal; Notable for the following components: Result Value Ref Range Albumin 5.2 (*) 3.9 - 4.9 g/dL All other components within normal limits CBC + DIFF - Abnormal; Notable for the following components: Abs Neut 7.93 (*) 1.45 - 7.50 k/uL Abs Lymph 0.88 (*) 1.00 - 4.00 k/uL All other components within normal limits LIPASE BLD - Abnormal; Notable for the following components: Lipase 11 (*) 16 - 61 U/L All other components within normal limits Procedures ED Course / Clinical Impression MDM / Disposition / Plan Clinically this sounds more like esophageal spasm than a food bolus, also given that it is a over the cookie is very unlikely that that still here 2 days later. I would like to treat him symptomatically for esophageal spasm and see if and get his symptoms to improve. I will get a chest x-ray here to ensure that there is no mediastinal air this visible. likely follow-up with GI. SIGNATURE: Eliud Beltre, DO Eliud Beltre, DO 08/15/21 1344 Eliud Beltre, 08/15/21 1344 Normal [facility] ED Triage Noteon 08-15-2021 ED Triage Note HNO ID: [id number] Author: Yudy Cox APRN.MOIRA Service: Emergency Medicine Author Type: Nurse Practitioner Type: ED Triage Notes Filed: 08/15/2021 12:54 PM Note Text: ED INTAKE NOTE Patient Name: Cleo Sanchez Service Date: 08/15/21 BRIEF HPI: Cleo Sanchez is a 31 yo male with no significant past my history to the emerge department today from primary care provider's office with epigastric pain that radiates to his chest. Patient states 2 days ago while eating he felt something get stuck in his throat. He said he tried to make himself throw up but was unable to. He said he drink water to get it past and it went to go down. He tried Tums, Gas-X, Coca-[employer]a. Patient continues to have epigastric pain that radiates into his chest with worse with swallowing. Denies any fever or chills. 99% on room air currently. BRIEF EXAM: Awake and Alert RRR CTAB Abd soft/epigastric TTP/ND; no rebound/guarding CARMONA INTAKE WORKUP: Bloodwork: CBC CMP Lipase Imaging: XR: Chest SIGNATURE: Yudy Cox APRN.FIRE LOSS PREVENTION ENGINEER Normal [facility] Lipase SerPl-cCncon 08-15-20 Lipase [Catalytic activity/Vol] 11 U/L Low 16-61 [facility] Comment on above: Order Comment: Speci men Type: BLOOD SPECIMEN Performed By: #### 3 040-3, 56753-3 ####[facility] [id number] [address] NURSING PROGon 08-15-2021 NURSING PROG HNO ID: [id number] Author: Maral Ovalle RN Service: Nursing Author Type: Registered Nurse Type: Nursing Progress Note Filed: 08/15/2021 6:22 PM Note Text: Pt brought to presurgical unit before COVID results finalized du8e to the protocol that pt was to be discharged home today. Once in Presurgical unit pt COVID test came back positive. Pt states that he had COVID 30 days ago. Pt is asymptomatic now. Dr. Ramírez aware of test result and EGD was cancelled today. Dr. Ramírez feels that procedure is not emergency due to the fact that pt is able to swallow at this time. Pt to be discharged to home and to follow up with Dr. Ramírez if problem gets worse Normal [facility] SARS-CoV-2 RNA Resp Ql PRIMITIVO+p robeon 08-15-2021 SARS-CoV-2 (COVID-19) RNA PRIMITIVO+probe Ql (Resp) COVID 19 RESULT: SARS-CoV-2 (Agent of COVID-19) Detected by PCR. This test has been authorized by FDA under an Emergency Use Authorization (EUA) Normal [facility] Comment on above: Performed By: #### 9 4500-6 #### [facility] CLIA [id number] [address] XR CHEST 2V FRONTAL/LATon XR CHEST 2V FRONTAL/LAT * * *Final Report* * * DATE OF EXAM: Aug 15 2021 1:09PM AKX [id number] - XR CHEST 2V FRONTAL/LAT / PROCEDURE REASON: Shortness of breath * * * * Physician Interpretation * * * * EXAMINATION: CHEST RADIOGRAPH (2 VIEW FRONTAL and LATERAL) CLINICAL HISTORY: Shortness of breath chest pain, upper abdominal pain. MQ: XC2_6 EXAM DATE/TIME: 08/15/2021 1:09 PM COMPARISON: No relevant prior studies available. RESULT: Lines, tubes, and devices: None. Lungs and pleura: No radiographic evidence of focal consolidation, significant pleural effusion, or pneumothorax. Cardiomediastinal silhouette: Normal cardiomediastinal silhouette. Bones and soft tissues: Unremarkable. IMPRESSION: No radiographic evidence of acute cardiopulmonary process. Die Forger: KERRY Transcribe Date/Time: Aug 15 2021 1:15P Dictated by : ROSALINA WASHBURN MD This examination was interpreted and the report reviewed and electronically signed by: ROSALINA WASHBURN MD on Aug 15 2021 1:20PM EST [id number] Normal [facility] 06-14-2021 GIAN Telephone (ALBARO) CLEO SANCHEZ ([id number]) 1990 Date Time Provider Department 06/14/21 CRIS BOSTON During your visit today, we recorded the following information about you: Cris Boston APRN.FIRE LOSS PREVENTION ENGINEER 06/14/2021 12:44 PM Signed Birthday verified with patient over the phone. Aware of the below information with all questions answered. COVID-19 negative; recommended to self-isolate until the following criteria are met: If you are symptomatic, the CDC recommends that people refrain from work/school and isolate themselves until - At least 24 hours have passed since last fever without the use of fever-reducing medications Other symptoms have improved Please continue with supportive care (rest and hydration) and follow up with primary care for any persistent or worsening symptoms. Please wear a mask when out in public after symptoms have improved. Allergies As of Date: 06/14/2021 (No Known Allergies) Date Reviewed: 06/13/2021 Reviewed by: Jennyfer Culver Ma - Fully Assessed Reason for Visit: Results [95] Prescriptions as of 06/14/2021 - amoxicillin-clavulanic acid (AUGMENTIN) 875-125 mg per tablet Take 1 tablet by mouth every 12 hours for 7 days. Only fill if negative Covid and still symptomatic at 10 days. - fluticasone (FLONASE ALLERGY RELIEF) 50 mcg/actuation nasal spray Use 1 [place] in each nostril twice daily. - albuterol HFA (PROAIR HFA) 90 mcg/actuation inhaler Inhale 2 Puffs as instructed every 4 hours as needed for Wheezing/Shortness of Breath (tightness in chest, cough). - predniSONE (DELTASONE) 20 mg tablet Take 1 tablet by mouth once daily. - Benzonatate 200 mg capsule Take 1 capsule by mouth every 8 hours as needed for Cough. - cyclobenzaprine (FLEXERIL) 5 mg tablet Take 1 tablet by mouth three times daily as needed for Muscle Spasm. Problem List As Of Date: 06/14/2021 (None) Encounter Status:Closed by CRIS BOSTON on 06/14/21 Normal [facility] Coronavirus 2019on 1 SARS-CoV-2 (COVID-19) RNA PRIMITIVO+probe Ql (Unsp spec) UPPER RESPIRATORY TRACT SWAB Normal [facility] Comment on above: Performed By: #### C OVID #### [facility] [address] [id number] SARS-CoV-2 (COVID-19) RNA PRIMITIVO+probe Ql (Unsp spec) Negative for COVID19 (SARS CoV2) by RT-PCR or equivalent method. Normal Negative for COVID19 (SARS CoV2) by RT-PCR or equivalent method. [facility] Comment on above: Result Comment: This test was developed and its performance characteristics determined by [facility] [place]. This test has been authorized by FDA under an Emergency Use Authorization (EUA). This test has been validated in accordance with the FDA's Guidance Document Policy for Diagnostics Testing in Laboratories Certified to Perform High Complexity Testing under CLIA prior to Emergency use Authorization for Coronavirus Disease 2019 during the Public Health Emergency issued on January 01, 2020. Test performed by [facility], Alexandre Cast[facility] [place], [address] [address]. Performed By: #### C OVID #### [facility] [address] [id number] CNOVon 06-13-2021 CNOV Office Visit (WALKWA ) CLEO SANCHEZ ([id number]) 1990 M Date Time Provider Department 06/13/21 5:50 PM CRIS BOSTON During your visit today, we recorded the following information about you: Temperature Pulse Respiration Blood pressure 98.9 degrees 90/minute 12/minute 129/69 Weight 74.8 kg Cris Boston APRN.CNP 06/13/2021 6:54 PM Signed This note was created using Better[employer]. Subjective Cleo Sanchez is a 31 year old male. HPI by patient: Cleo Sanchez is a 31 year old male presenting to the office with the complaint of URI symptoms. Started approximately 2 days prior. Verbalized he needs an antibiotic, gets this every year around the same time. Associated symptoms include facial pressure, sinus congestion- brown to yellow, runny nose, cough, sinus pressure headache in the front, shortness of breath when he walks up the steps- only get's when he gets severe sinus infections, and loss of smell. Denies fevers, chills, body aches, nausea, vomiting, fatigue, diarrhea, and loss of taste. Strep contacts: none. Vaccinated for Covid: no. Sick contacts: is ill. Covid + contacts: none. Travel in the last 14 days: none. Smoking history/second hand smoke: none OTC cold and congestion medication with sudafed. No antibiotic use in the last 30 days. ALLERGIES No Known Allergies No family history on file. Social History Tobacco Use Smoking status: Current Some Day Smoker Smokeless tobacco: Never Used Alcohol use: Not on file Drug use: Not on file Active Ambulatory Problems No Active Ambulatory Problems Resolved Ambulatory Problems No Resolved Ambulatory Problems No Additional Past Medical History Review of Systems Constitutional: Negative. HENT: Positive for congestion and rhinorrhea. Negative for ear pain and sore throat. Eyes: Negative. Respiratory: Positive for cough and shortness of breath. Negative for wheezing. Cardiovascular: Negative. Gastrointestinal: Negative. Endocrine: Negative. Genitourinary: Negative. Musculoskeletal: Negative. Skin: Negative. Neurological: Positive for headaches. Objective BP 129/69 Pulse 90 Temp 37.2 ?C (98.9 ?F) (Oral) Resp 12 Wt 74.8 kg (165 lb) BMI 23.68 kg/m? Physical Exam Vitals reviewed. Constitutional: General: He is not in acute distress. Appearance: He is not ill-appearing, toxic-appearing or diaphoretic. HENT: Head: Normocephalic and atraumatic. Right Ear: Tympanic membrane, ear canal and external ear normal. Left Ear: Tympanic membrane, ear canal and external ear normal. Nose: Rhinorrhea present. Rhinorrhea is clear. Right Turbinates: Not enlarged. Left Turbinates: Not enlarged. Right Sinus: Maxillary sinus tenderness and frontal sinus tenderness present. Left Sinus: Maxillary sinus tenderness and frontal sinus tenderness present. Mouth/Throat: Mouth: Mucous membranes are moist. Pharynx: Oropharynx is clear. No oropharyngeal exudate, posterior oropharyngeal erythema or uvula swelling. Cardiovascular: Rate and Rhythm: Normal rate and regular rhythm. Heart sounds: Normal heart sounds. Pulmonary: Effort: Pulmonary effort is normal. Lymphadenopathy: Head: Right side of head: No submandibular or tonsillar adenopathy. Left side of head: No submandibular or tonsillar adenopathy. Cervical: No cervical adenopathy. Psychiatric: Behavior: Behavior is cooperative. Assessment and Plan (J32.9, B97.89) Viral sinusitis (primary encounter diagnosis) Plan: 2019 CORONAVIRUS, amoxicillin-clavulanic acid (AUGMENTIN) 875-125 mg per tablet, fluticasone (FLONASE ALLERGY RELIEF) 50 mcg/actuation nasal spray Education on viral vs bacterial infections. Most viral infections will last 7-10 days, at the most 14. It is possible to have back to back viral infections. An antibiotic will not treat a virus. -Symptomatic for 2 days, covid test for rule out. Results in 24-48 hours, will call with results. Isolation in the interim. If covid is negative and still symptomatic at the 10 day jacinto, may fill the Augmentin twice daily for 7 days. -Drink lots of fluids and get plenty of rest. -Vaporizers, cool mist humidifiers, warm showers, and warm fluids help open respiratory and sinus passages. Clean humidifiers daily. -OTC tylenol as directed on the bottle. May use OTC Ibuprofen if there is no underlying blood pressure/heart disease. -Saline nasal spray as needed. Flonase twice daily can help reduce inflammation through the sinus cavities. -OTC Mucinex DM or generic version for cough/congestion for those over the age of 12. -Cough/deep breathing education, promote clearing of the airways and good lung expansion. -Follow up with primary care. -Signs that warrant an ER evaluation: Sudden change/worsening in condition, lethargy, signs of dehydration, fever greater than 102 F that is n (more content not included)... Normal [facility] Encounters Encounter Date Encounter Type Care Provider Facility Start: 11-25-2024 End: 11-25-2024 Subsequent hospital visit by physician Ting Freeman DO Work Phone: [facility] Non-Invasive Cardiology Comment on above: Palpitations Start: 11-25-2024 End: 11-25-2024 ambulatory [facility] Start: 11-12-2024 End: 02-11-2025 Transcribe Orders Ting Freeman DO Work Phone: [facility] Central Scheduling Comment on above: Palpitations (Primar y Dx) Start: 2024 End: 2024 Subsequent hospital visit by physician Ting Freeman DO Work Phone: [facility] US Imaging Comment on above: Other specified join t disorders, right knee Start: 2024 End: 2024 ambulatory [facility] Start: 05-26-2024 End: 08-25-2024 Transcribe Orders Ting Freeman DO Work Phone: [facility] Central Scheduling Comment on above: Other specified join t disorders, right knee (Primary Dx) Start: 05-17-2024 End: 05-17-2024 ambulatory [facility] Start: 05-17-2024 End: 08-16-2024 Subsequent hospital visit by physician Ting Freeman DO Work Phone: [facility] X-ray Imaging Comment on above: Localized swelling, mass and lump, right lower limb Localized swelling, mass and lump, right lower limb (Primary Dx) Plan of Treatment Date Care Activity Detail Author Start: 2065 RSV Immunization for Adults (1 - 1-dose 75+ series) RSV Immunization for Adults (1 - 1-dose 75+ series) [facility] Start: 2050 RSV Immunization age d 60 or older (1 - 1-dose 60+ series) RSV Immunization aged 60 or older (1 - 1-dose 60+ series) [facility] Start: 2040 Zoster Vaccines (1 of 2) Zoster Vacc pieter (1 of 2) [facility] Start: 07-04-2025 Influenza vaccination Influenz a Vaccine (Season Ended) [facility] Start: 07-04-2024 COVID-19 Vaccine ( season) COVID-19 Vaccine ( season) [facility] Start: 07-04-2024 COVID-19 Vaccine ( season) COVID-19 Vaccine ( season) [facility] Start: 07-04-2024 Influenza vaccination Influenza Vacc ine (#1) [facility] Start: 07-04-2023 COVID-19 Vaccine ( season) COVID-19 Vaccine ( season) [facility] Start: 2009 DTaP/Tdap/Td Vaccine s (1 - Tdap) DTaP/Tdap/Td Vaccines (1 - Tdap) [facility] Start: 2009 Hepatitis B Vaccines (1 of 3 - 19+ 3-dose series) Hepatitis B Vaccines (1 of 3 - 19+ 3-dose series) [facility] Start: 2008 Hepatitis C screening Hepatitis C Sc reening [facility] Start: 2003 Varicella vaccination Varicell a Vaccines (1 of 2 - 13+ 2-dose series) [facility] Start: 2002 Depression Screening Depression Scre ening [facility] Start: 1991 MMR Vaccines (1 of 1 - Standard series) MMR Vaccines (1 of 1 - Standard series) [facility] Start: 1990 HIV screening HIV Screening [facility] End: 11-25-2024 Cardiac event monitor (14 days) [facility] Work Phone: Comment on above: Once for 1 Occurrenc es starting 11/25/2024 until 11/25/2024 OUTSIDE PROCEDURE SCAN OUTSIDE P ROCEDURE SCAN Procedures Ordered: 05/17/2024 [facility] Comment on above: Ordered: 05/17/2024 End: 2024 US extremity non vascular limited [facility] [employer] [facility] Work Phone: Comment on above: Once for 1 Occurrenc es starting 2024 until 2024 End: 05-17-2024 XR Knee - right 3 Views [facility] [employer] Work Phone: Comment on above: Once for 1 Occurrenc es starting 05/17/2024 until 05/17/2024 Payers Date Payer Category Payer [employer] - [facility] [place] [place] 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 Start: 1990 Sex assigned at Male [facility] Start: 11-25-2024 Gender identity Identifies as male gender (finding) [facility] Start: 11-25-2024 Sexual orientation Heterosexual (fin ding) [facility] Clinical Notes 06-13-2021 to 08-17-2021 Note Date & Type Note Facility 08-17-2021 Note HNO ID: [id number] Author: Stephanie Mercedes [facility] Service: ? Author Type: ? Type: Progress Notes Filed: 08/17/2021 1:26 PM Note Text: COVID COMMUNITY MONITORING PROGRAM Provider Action/FYI: Pre-op Notification of results Call deferred at this time. Patient tested + for covid 3-4 weeks ago. Gastro instructed patient of the following per 08/15 Gastro visit note Pt tested + for Covid, but had it about 3-4 wks ago and has been asx for > 2-3 wks. Given his stability from GI standpoint will hold off endoscopy and simply DC pt on PPI and have him f/up as outpt. Monitoring Call: Date of symptoms onset: No data recorded Patient is COVID-19 positive Contact made with patient No - Unable to leave message - Enter next patient outreach date for the following business day in the Track Pt. Outreach - End Outreach Outreach ended. [facility] 08-17-2021 Note Patient Outreach ([facility]) CLEO SANCHEZ ([id number]) 1990 M Date Time Provider Department 08/17/21 MERCEDESSTEPHANIE ([facility] During your visit today, we recorded the following information about you: Stephanie Mercedes [facility] 08/17/2021 1:26 PM Signed COVID COMMUNITY MONITORING PROGRAM Provider Action/FYI: Pre-op Notification of results Call deferred at this time. Patient tested + for covid 3-4 weeks ago. Gastro instructed patient of the following per 08/15 Gastro visit note Pt tested + for Covid, but had it about 3-4 wks ago and has been asx for > 2-3 wks. Given his stability from GI standpoint will hold off endoscopy and simply DC pt on PPI and have him f/up as outpt. Monitoring Call: Date of symptoms onset: No data recorded Patient is COVID-19 positive Contact made with patient No - Unable to leave message - Enter next patient outreach date for the following in the Track Pt. Outreach - End Outreach Outreach ended. Allergies As of Date: 08/17/2021 (No Known Allergies) Date Reviewed: 08/15/2021 Reviewed by: Mushtaq Elena MD - Fully Assessed Reason for Visit: Covid Follow Up [7060] Cmt: ED Notification of + covid results Prescriptions as of 08/17/2021 - amphetamine-dextroamphetamine XR (ADDERALL XR) 20 mg 24 hr capsule Take 20 mg by mouth once daily. - pantoprazole DR (PROTONIX) 20 mg tablet Take 1 tablet by mouth once daily. Take for at least 30 ds. Take 30 mins before breakfast - fluticasone (FLONASE ALLERGY RELIEF) 50 mcg/actuation nasal spray Use 1 [place] in each nostril twice daily. - albuterol HFA (PROAIR HFA) 90 mcg/actuation inhaler Inhale 2 Puffs as instructed every 4 hours as needed for Wheezing/Shortness of Breath (tightness in chest, cough). - predniSONE (DELTASONE) 20 mg tablet Take 1 tablet by mouth once daily. - Benzonatate 200 mg capsule Take 1 capsule by mouth every 8 hours as needed for Cough. - cyclobenzaprine (FLEXERIL) 5 mg tablet Take 1 tablet by mouth three times daily as needed for Muscle Spasm. Facility-Administered Medications as of 08/17/2021 - midazolam (PF) injection (VERSED) - fentaNYL 50 mcg/mL injection (SUBLIMAZE) Problem List As Of Date: 08/17/2021 (None) Encounter Status:Closed by STEPHANIE DILLARD on 08/17/21 [facility] 08-16-2021 Note HNO ID: [id number] Author: Keyur KINSEY Service: ? Author Type: ? Type: Progress Notes Filed: 08/16/2021 2:22 PM Note Text: [facility] COMMUNITY MONITORING PROGRAM Provider Action/FYI: no answer left VM 1st attempt to reach Monitoring Call: Date of symptoms onset: No data recorded Patient is COVID-19 positive Contact made with patient No - (If patient is COVID POSITIVE) - Initial outreach attempt - left message - Teja, my name is Keyur KINSEY and I am calling from the [facility]. I am sorry that I missed you, but your care is important to us, we would like to follow up with you. We will call you back tomorrow. If any of your symptoms have worsened, please call your PCP's office to discuss, [facility] 24 hr appointment line at [phone], or Express Care Online for a virtual visit 26/05. [facility] Employees may call [facility] Employee Hotline at [phone]. Outreach ended. [facility] 08-16-2021 Note Patient Outreach (AM [facility]) CLEO SANCHEZ ([id number]) 1990 M Date Time Provider Department 08/16/21 KEYUR BAXTER During your visit today, we recorded the following information about you: Keyur KINSEY 08/16/2021 2:22 PM Signed COVID COMMUNITY MONITORING PROGRAM Provider Action/FYI: no answer left VM 1st attempt to reach Monitoring Call: Date of symptoms onset: No data recorded Patient is COVID-19 positive Contact made with patient No - (If patient is COVID POSITIVE) - Initial outreach attempt - left message - Teja, my name is Keyur KINSEY and I am calling from the [facility]. I am sorry that I missed you, but your care is important to us, we would like to follow up with you. We will call you back tomorrow. If any of your symptoms have worsened, please call your PCP's office to discuss, [facility] 24 hr appointment line at [phone], or Express [facility] Online for a virtual visit 26/05. [facility] Employees may call [facility] Employee Hotline at [phone]. Outreach ended. Allergies As of Date: 08/16/2021 (No Known Allergies) Date Reviewed: 08/15/2021 Reviewed by: Mushtaq Elena MD - Fully Assessed Reason for Visit: Covid Follow Up [4083] Cmt: ED COVID+Notification(1st att) Prescriptions as of 08/16/2021 - amphetamine-dextroamphetamine XR (ADDERALL XR) 20 mg 24 hr capsule Take 20 mg by mouth once daily. - pantoprazole DR (PROTONIX) 20 mg tablet Take 1 tablet by mouth once daily. Take for at least 30 ds. Take 30 mins before breakfast - fluticasone (FLONASE ALLERGY RELIEF) 50 mcg/actuation nasal spray Use 1 [place] in each nostril twice daily. - albuterol HFA (PROAIR HFA) 90 mcg/actuation inhaler Inhale 2 Puffs as instructed every 4 hours as needed for Wheezing/Shortness of Breath (tightness in chest, cough). - predniSONE (DELTASONE) 20 mg tablet Take 1 tablet by mouth once daily. - Benzonatate 200 mg capsule Take 1 capsule by mouth every 8 hours as needed for Cough. - cyclobenzaprine (FLEXERIL) 5 mg tablet Take 1 tablet by mouth three times daily as needed for Muscle Spasm. Facility-Administered Medications as of 08/16/2021 - midazolam (PF) injection (VERSED) - fentaNYL 50 mcg/mL injection (SUBLIMAZE) Problem List As Of Date: 08/16/2021 (None) Encounter Status:Closed by KEYUR LE on 08/16/21 [facility] 08-15-2021 Note HNO ID: [id number] Author: Bismark Lopez PA-C Service: ? Author Type: Physician [employer] Operator Type: Progress Notes Filed: 08/15/2021 12:20 PM Note Text: Triage note: 31 yo male here for acute onset worsening epigastric pain x 2 days. Started on Friday (08/13/21). He reports a sharp pain in the lower sternal/epigastric area. Worsened dramatically today () pain. Sharp. He notes a feeling of pressure and regurgitation like a bubble in his throat. He denies acid reflux sensations. Pain is sharp. It does not radiate to the back or elsewhere. He leans forward with walking and sitting for some relief. No fever, chills, sweats, n/v/d/c, or other sick symptoms. No h/o gallbladder issues, hernias, ulcers, GERD, or other GI disorders. BP 140/84 Pulse 92 Temp 36.6 ?C (97.8 ?F) (Oral) Resp 12 SpO2 99% Brief exam: General- appears uncomfortable. Leans forward with sitting and standing. Abdomen: BS x 4 quads, soft, nondistended, Significant epigastric tenderness to deep palpation, Hubbard's sign- negative, McBurney's point- negative, Psoas and Obturator signs- negative, no masses or organomegaly, no rebound tenderness or guarding. No Gato or Gibbs Abarca's sign. No CVA tenderness to percussion. ASSESSMENT/PLAN: 1. Epigastric pain - ICD9: 789.06, ICD10: R10.13 Sharp, 8-9/10 pain Worsening Had to leave work today due to degree of pain - CONSULT TO EMERGENCY MEDICINE - Cannot fully evaluate in Exp Care No charge Bismark Lopez PA-C [facility] 06-13-2021 Note HNO ID: [id number] Author: Cris Boston APRN.CNP Service: ? Author Type: Nurse Practitioner Type: Progress Notes Filed: 06/13/2021 6:54 PM Note Text: This note was created using NoteWriter. Subjective Cleo Sanchez is a 31 year old male. HPI by patient: Cleo Sanchez is a 31 year old male presenting to the office with the complaint of URI symptoms. Started approximately 2 days prior. Verbalized he needs an antibiotic, gets this every year around the same time. Associated symptoms include facial pressure, sinus congestion- brown to yellow, runny nose, cough, sinus pressure headache in the front, shortness of breath when he walks up the steps- only get's when he gets severe sinus infections, and loss of smell. Denies fevers, chills, body aches, nausea, vomiting, fatigue, diarrhea, and loss of taste. Strep contacts: none. Vaccinated for Covid: no. Sick contacts: is ill. Covid + contacts: none. Travel in the last 14 days: none. Smoking history/second hand smoke: none OTC cold and congestion medication with sudafed. No antibiotic use in the last 30 days. ALLERGIES No Known Allergies No family history on file. Social History Tobacco Use Smoking status: Current Some Day Smoker Smokeless tobacco: Never Used Alcohol use: Not on file Drug use: Not on file Active Ambulatory Problems No Active Ambulatory Problems Resolved Ambulatory Problems No Resolved Ambulatory Problems No Additional Past Medical History Review of Systems Constitutional: Negative. HENT: Positive for congestion and rhinorrhea. Negative for ear pain and sore throat. Eyes: Negative. Respiratory: Positive for cough and shortness of breath. Negative for wheezing. Cardiovascular: Negative. Gastrointestinal: Negative. Endocrine: Negative. Genitourinary: Negative. Musculoskeletal: Negative. Skin: Negative. Neurological: Positive for headaches. Objective BP 129/69 Pulse 90 Temp 37.2 ?C (98.9 ?F) (Oral) Resp 12 Wt 74.8 kg (165 lb) BMI 23.68 kg/m? Physical Exam Vitals reviewed. Constitutional: General: He is not in acute distress. Appearance: He is not ill-appearing, toxic-appearing or diaphoretic. HENT: Head: Normocephalic and atraumatic. Right Ear: Tympanic membrane, ear canal and external ear normal. Left Ear: Tympanic membrane, ear canal and external ear normal. Nose: Rhinorrhea present. Rhinorrhea is clear. Right Turbinates: Not enlarged. Left Turbinates: Not enlarged. Right Sinus: Maxillary sinus tenderness and frontal sinus tenderness present. Left Sinus: Maxillary sinus tenderness and frontal sinus tenderness present. Mouth/Throat: Mouth: Mucous membranes are moist. Pharynx: Oropharynx is clear. No oropharyngeal exudate, posterior oropharyngeal erythema or uvula swelling. Cardiovascular: Rate and Rhythm: Normal rate and regular rhythm. Heart sounds: Normal heart sounds. Pulmonary: Effort: Pulmonary effort is normal. Lymphadenopathy: Head: Right side of head: No submandibular or tonsillar adenopathy. Left side of head: No submandibular or tonsillar adenopathy. Cervical: No cervical adenopathy. Psychiatric: Behavior: Behavior is cooperative. Assessment and Plan (J32.9, B97.89) Viral sinusitis (primary encounter diagnosis) Plan: 2019 CORONAVIRUS, amoxicillin-clavulanic acid (AUGMENTIN) 875-125 mg per tablet, fluticasone (FLONASE ALLERGY RELIEF) 50 mcg/actuation nasal spray Education on viral vs bacterial infections. Most viral infections will last 7-10 days, at the most 14. It is possible to have back to back viral infections. An antibiotic will not treat a virus. -Symptomatic for 2 days, covid test for rule out. Results in 24-48 hours, will call with results. Isolation in the interim. If covid is negative and still symptomatic at the 10 day jacinto, may fill the Augmentin twice daily for 7 days. -Drink lots of fluids and get plenty of rest. -Vaporizers, cool mist humidifiers, warm showers, and warm fluids help open respiratory and sinus passages. Clean humidifiers daily. -OTC tylenol as directed on the bottle. May use OTC Ibuprofen if there is no underlying blood pressure/heart disease. -Saline nasal spray as needed. Flonase twice daily can help reduce inflammation through the sinus cavities. -OTC Mucinex DM or generic version for cough/congestion for those over the age of 12. -Cough/deep breathing education, promote clearing of the airways and good lung expansion. -Follow up with primary care. -Signs that warrant an ER evaluation: Sudden change/worsening in condition, lethargy, signs of dehydration, fever greater than 102 F that is not responding to Tylenol or ibuprofen (Motrin, Advil), drooling, difficulty swallowing, difficulty breathing, shortness of breath, chest pain, evidence of airway compromise (tripod position, neck extension, retractions), seizures, changes in mental status, or other co (more content not included)... [facility] Evaluation note Diagnosis Localized swelling, mass and lump, right lower limb [facility] Diagnosis Other specified joint disorders, right knee [facility] Diagnosis Localized swelling, mass and lump, right lower limb- Primary [facility] this [facility] Diagnosis Other specified joint disorders, right knee- Primary documented in this encounter [facility] note* Diagnosis Palpitations documented in this encounter [facility] note* Diagnosis Palpitations- Primary Palpitations documented in this encounter [facility] for visit Narrative* Cardiology (Routine) - Closed Specialty Diagnoses / Procedures Referred By Jasvir t Referred To Contact Cardiology Diagnoses Palpitations Procedures Cardiac event monitor (14 days) OK XTRNL ECG & 48 HR RECORDING OK EXTERNAL ECG SCANNING ANALYSIS REPORT OK XTRNL ECG CONTINUOUS RHYTHM W/I&R UP TO 48 HRS OK XTRNL MOBILE CV TELEMETRY W/I&REPORT 30 DAYS OK XTRNL MOBILE CV TELEMETRY W/TECHNICAL SUPPORT Ting Freeman, DO [address] [place] [address] Phone: tel: fax: Referral ID Status Reason Start Date Expiration Date Visits Re quested Visits Authorized [id number] Closed 11/12/2024 11/07/2025 1 1 [facility] Summary Purpose Family History No Family History Records FoundNo Family History Records FoundNo Family History Records FoundNo Family History Records Found Advance Directives No Advanced Directives Records FoundNo Advanced Directives Records FoundNo Advanced Directives Records FoundNo Advanced Directives Records Found Additional Source Comments (unrecognized sect ion and content) No Status Records FoundNo Status Records FoundNo Status Records FoundNo Status Records Found INFORMATION SOURCE (unrecogn ized section and content) DATE CREATED AUTHOR 08/17/2021 [facility] DATE CREATED AUTHOR AUTHOR'S ORGANIZ ATION 12/08/2021 [facility] DATE CREATED AUTHOR AUTHOR'S ORGANIZ ATION 01/17/2022 [facility] DATE CREATED AUTHOR AUTHOR'S ORGANIZ ATION 12/13/2024 [facility] Care Teams (unrecognized sec tion and content) Healthcare Liaison Relationship Specialty Start Date End Date Ting Freeman DO [address] [place] [address] [place] [address] PCP - General 04/18/16 Healthcare Liaison Relationship Specialty Start Date End Date Ting Freeman DO [address] [place] [address] [place] [address] PCP - General 04/18/16 Healthcare Liaison Relationship Specialty Start Date End Date Ting Freeman DO [address] [place] [address] [place] [address] PCP - General 04/18/16 Healthcare Liaison Relationship Specialty Start Date End Date Ting Freeman DO [address] [place] [address] [place] [address] PCP - General 04/18/16 Healthcare Liaison Relationship Specialty Start Date End Date Ting Freeman DO [address] [place] [address] [place] [address] PCP - General 04/18/16 FOR RECORDS PERTAINING TO PATIENTS WHO ARE OR HAVE BEEN ENROLLED IN A CHEMICAL DEPENDENCY/SUBSTANCEABUSE PROGRAM, SOME INFORMATION MAY BE OMITTED. This clinical summary was aggregated from multiple sources. Caution should be exercised in using it in the provision of clinical care. This summary normalizes information from multiple sources, and as a consequence, information in this document may materially change the coding, format and clinical context of patient data. In addition, data may be omitted in some cases. CLINICAL DECISIONS SHOULD BE BASED ON THE PRIMARY CLINICAL RECORDS. [facility]. provides no warranty or guarantee of the accuracy or completeness of information in this document.
[2025-08-25 12:00] VITALS: BP 148/97; PULSE 90; RESP 15; O2SAT 97
[2025-08-25 13:41] LABS: Barbiturate Urine NEGATIVE (< 200 ng/mL); Benzodiazepine Urine NEGATIVE (< 200 ng/mL); PCP Urine NEGATIVE (< 25 ng/mL); THC Urine NEGATIVE (< 50 ng/mL)
[2025-08-25 13:48] LABS: Reflex Lactate? Y
[2025-08-25 14:13] VITALS: BP 135/89; PULSE 90; O2SAT 98
[2025-08-25] MEDS: HYDROcodone Bitartrate/Apap 5/325 Tablet PO (14:24)
[2025-08-25] MEDS: Lidocaine 5% Patch 1 PATCH TOPICAL (14:25)
[2025-08-25 14:28] VITALS: BP 135/89; PULSE 90; RESP 15; TEMP 36.1; O2SAT 98
== END 2025-08-25 14:40 | disposition home or self-care (01) ==
PROVIDERS: Emergency Provider Emergency Medicine; Visit Provider Emergency Medicine
DX: R56.9 Unspecified convulsions (principal); S20.211A Contusion of right front wall of thorax, initial encounter; F41.9 Anxiety disorder, unspecified; Z79.899 Other long term (current) drug therapy; F17.220 Nicotine dependence, chewing tobacco, uncomplicated; X58.XXXA Exposure to other specified factors, initial encounter
CPT/HCPCS: 70450; 71046; 80053; 80307; 83605; 83735; 85025; 93005; 96361; 96374; 99285; A4216